=== PATIENT | female | born 1955 | race Caucasian/White ===

== ENCOUNTER 2017-03-28 07:41 | Outpatient (CLI) | payer OTHER ==
--- NOTE | 2017-03-28 09:22 | MRI Preliminary Report ---
Exam: MRI Wrist LT W/O IMPRESSION: 1. Small volar radiocarpal ganglion cyst 0.8 x 0.25 x 1.3 cm. 2. Tiny ganglion cyst at the distal radial aspect of the carpal tunnel decreased in size from prior M RI. [facility] MUSCULOSKELETAL RADIOLOGY SECTION SITE ID: [id number]
--- NOTE | 2017-03-28 11:42 | MRI Report ---
EXAM: LEFT WRIST MRI WITHOUT CONTRAST EXAM DATE: 03/28/2017 08:27 AM. CLINICAL HISTORY: Left wrist pain. Dull pain in the morning increasing into the evening. Prior MR art hrogram 09/24/2015. COMPARISON: Prior MR arthrogram 09/24/2015. TECHNIQUE: Multiplanar, multisequence T1-weighted and fluid-sensitive sequences of the wrist without contrast. Other: None. FINDINGS: Bones and articular surfaces: No significant joint effusion. Slight negative ulnar variance. No osteo chondral lesions. No significant articular cartilage abnormalities are seen. Marrow signal appears wi thin normal limits. Small volar radiocarpal ganglion cyst measures approximately 0.8 x 0.25 cm transv erse and 1.3 cm proximal to distal. No erosive change. There is a smaller ganglion cyst approximately 0.5 x 0.15 x 0.35 cm deep to the distal radial margin of the carpal tunnel, decreased from prior. Musculotendinous structures: Visualized flexor and extensor tendons appear intact without evidence of significant tendinosis or tenosynovitis. No muscle edema, atrophy or fatty replacement within the fi eld-of-view. Ligaments: There is no scapholunate or lunatotriquetral diastases. [place] fibrocartilage appears gr ossly intact. IMPRESSION: 1. Small volar radiocarpal ganglion cyst 0.8 x 0.25 x 1.3 cm. 2. Tiny ganglion cyst at the distal radial aspect of the carpal tunnel decreased in size from prior M [place] [facility] MUSCULOSKELETAL RADIOLOGY SECTION Referring Provider Line: [phone] SITE ID: [id number]
== END 2017-03-28 07:42 | disposition home or self-care (01) ==
LOC: DI 07:41
PROVIDERS: ATTEND Family Medicine
DX: M67.432 Ganglion, left wrist (principal)

== ENCOUNTER 2019-06-11 08:00 | Outpatient (CLI) | payer OTHER | END 2019-06-11 23:59 | disposition home or self-care (01) | LOC: LAB.R 08:00 | PROVIDERS: ATTEND Nurse Practitioner Gerontology | DX: Z12.11 Encounter for screening for malignant neoplasm of colon (principal) | CPT/HCPCS: 82274 ==

== ENCOUNTER 2019-06-12 07:18 | Outpatient (CLI) | payer OTHER ==
[2019-06-12 12:34] LABS: BASOPHILS # (AUTO) 0.1 10^3/uL (0.0-0.1); BASOPHILS % (AUTO) 0.9 %; EOSINOPHILS # (AUTO) 0.2 10^3/uL (0.0-0.7); EOSINOPHILS % (AUTO) 3.3 %; HGB - HEMOGLOBIN 13.6 g/dL (12.0-16.0); LYMPHOCYTES # (AUTO) 1.7 10^3/uL (1.5-3.5); LYMPHOCYTES % (AUTO) 31.3 %; MEAN CORPUSCULAR HEMOGLOBIN 30.7 pg (27.0-31.0); MEAN CORPUSCULAR HGB CONC 32.5 g/dL (32.0-36.0); MEAN CORPUSCULAR VOLUME 94.6 fL (81.0-99.0); MEAN PLATELET VOLUME 11.1 fL (7.9-10.8); MONOCYTES # (AUTO) 0.5 10^3/uL (0.0-1.0); MONOCYTES % (AUTO) 8.7 %; NEUTROPHILS % (AUTO) 55.6 %; PLT - PLATELET COUNT 174 10^3/uL (130-450); RED BLOOD COUNT 4.43 10^6/uL (4.20-5.40); RED CELL DISTRIBUTION WIDTH 13.2 % (12.0-15.0); WHITE BLOOD COUNT 5.4 x10^3/uL (4.8-10.8)
[2019-06-12 12:52] LABS: ALBUMIN 4.2 g/dL (3.2-5.5); ALBUMIN/GLOBULIN RATIO 1.6 (1.0-2.2); ALKALINE PHOSPHATASE 106 IU/L (42-121); ALT ALANINE AMINOTRANSFERASE 14 IU/L (10-60); AST ASPARTATE AMINOTRANSFERASE 21 IU/L (10-42); BILIRUBIN,TOTAL 0.9 mg/dL (0.2-1.0); BUN - BLOOD UREA NITROGEN 16 mg/dL (6-20); CALCIUM 9.2 mg/dL (8.5-10.3); CARBON DIOXIDE - CO2 30 mmol/L (21-32); CHLORIDE 104 mmol/L (101-111); CHOL/HDL RATIO 2.8 (<4.4); CHOLESTEROL 210 mg/dL; CREATININE 0.7 mg/dL (0.4-1.0); GFR - MDRD 85 (>89); GLUCOSE 101 mg/dL (70-100); HDL CHOLESTEROL 76 mg/dL; LDL CHOLESTEROL,CALCULATED 121 mg/dL; LDL/HDL RATIO 1.6 (<4.4); SODIUM 140 mmol/L (135-145); TOTAL PROTEIN 6.9 g/dL (6.7-8.2); VLDL CHOLESTEROL 13 mg/dL
== END 2019-06-12 23:59 | disposition home or self-care (01) ==
LOC: LAB.N 07:18
PROVIDERS: ATTEND Nurse Practitioner Gerontology
DX: Z13.9 Encounter for screening, unspecified (principal); Z12.11 Encounter for screening for malignant neoplasm of colon
CPT/HCPCS: 36415; 80050; 80061; 83721

== ENCOUNTER 2019-10-11 15:36 | Outpatient (CLI) | payer OTHER ==
--- NOTE | 2019-10-11 16:10 | XRAY Report ---
Reason: PAIN ACROSS BALL OF RT FOOT Procedure Date: 10/11/2019 Accession Number: [id number] / [id number] Procedure: XR - Foot 3 View RT CPT Code: Final Report FULL RESULT: EXAM: RIGHT FOOT RADIOGRAPHY EXAM DATE: 10/11/2019 03:51 PM. CLINICAL HISTORY: PAIN ACROSS BALL OF RT FOOT. COMPARISON: None. TECHNIQUE: 3 views. FINDINGS: Bones: Normal. No fractures or bone lesions. Joints: Mild joint space narrowing first metatarsophalangeal joint. First metatarsal tarsal osteophytes, joint space narrowing. Soft Tissues: Normal. No soft tissue swelling. IMPRESSION: Mild DJD [facility]
== END 2019-10-11 15:37 | disposition home or self-care (01) ==
LOC: DI 15:36
PROVIDERS: ATTEND Podiatrist
DX: M19.071 Primary osteoarthritis, right ankle and foot (principal)

== ENCOUNTER 2020-03-27 15:54 | Outpatient (CLI) | payer OTHER ==
--- NOTE | 2020-03-27 15:59 | XRAY Report ---
Reason: LUMBAR RADICULOPATHY Procedure Date: 03/27/2020 Accession Number: [id number] / [id number] Procedure: WCP - Lumbar Spine 2 View CPT Code: Final Report FULL RESULT: PROCEDURE: Lumbar Spine 2 View INDICATIONS: LUMBAR RADICULOPATHY TECHNIQUE: 2 views of the lumbar spine were acquired. COMPARISON: None. FINDINGS: Bones: 5 [id number] vertebrae are present. There is mild diffuse rightward curvature of the mid/upper lumbar spine. There is mild grade 1 anterolisthesis of L4 and L5. Mild multilevel disc space narrowing and endplate osteophyte formation, as well as facet hypertrophy, worst in the mid/lower lumbar spine. No vertebral body compression fractures. No suspicious bony lesions. Soft tissues: Overlying bowel gas pattern is normal. No suspicious soft tissue calcifications. IMPRESSION: 1. Multilevel degenerative disc and facet disease. 2. No acute fracture. No osseous lesion. If symptoms and/or clinical suspicion for pathology continue, further assessment with repeat plain films, or advanced imaging (e.g., CT, MRI, or bone scan) is recommended for further assessment. Reviewed by: Lara Callejas MD on 03/27/2020 3:58 PM PDT Approved by: Lara Callejas MD on 03/27/2020 3:58 PM PDT Station ID: [id number]
== END 2020-03-27 23:59 | disposition home or self-care (01) ==
LOC: DI.WCP 15:54
PROVIDERS: ATTEND Family Medicine
DX: M51.16 Intervertebral disc disorders with radiculopathy, lumbar region (principal)
CPT/HCPCS: 72100

== ENCOUNTER 2020-05-06 13:25 | Outpatient (CLI) | payer OTHER ==
[2020-05-06 18:24] LABS: BASOPHILS # (AUTO) 0.1 10^3/uL (0.0-0.1); BASOPHILS % (AUTO) 0.9 %; EOSINOPHILS # (AUTO) 0.1 10^3/uL (0.0-0.7); EOSINOPHILS % (AUTO) 2.3 %; HGB - HEMOGLOBIN 13.5 g/dL (12.0-16.0); LYMPHOCYTES # (AUTO) 1.6 10^3/uL (1.5-3.5); LYMPHOCYTES % (AUTO) 29.6 %; MEAN CORPUSCULAR HEMOGLOBIN 31.3 pg (27.0-31.0); MEAN CORPUSCULAR HGB CONC 32.5 g/dL (32.0-36.0); MEAN CORPUSCULAR VOLUME 96.1 fL (81.0-99.0); MEAN PLATELET VOLUME 11.3 fL (7.9-10.8); MONOCYTES # (AUTO) 0.6 10^3/uL (0.0-1.0); MONOCYTES % (AUTO) 10.8 %; NEUTROPHILS % (AUTO) 56.2 %; PLT - PLATELET COUNT 171 10^3/uL (130-450); RED BLOOD COUNT 4.32 10^6/uL (4.20-5.40); RED CELL DISTRIBUTION WIDTH 13.4 % (12.0-15.0); WHITE BLOOD COUNT 5.3 x10^3/uL (4.8-10.8)
[2020-05-06 18:52] LABS: ALBUMIN 4.5 g/dL (3.2-5.5); ALBUMIN/GLOBULIN RATIO 1.8 (1.0-2.2); BILIRUBIN,TOTAL 0.6 mg/dL (0.2-1.0); CALCIUM 9.4 mg/dL (8.5-10.3); CREATININE 0.7 mg/dL (0.4-1.0)
== END 2020-05-06 23:59 | disposition home or self-care (01) ==
LOC: LAB.WCP 13:25
PROVIDERS: ATTEND Physician Assistant
DX: R53.83 Other fatigue (principal)
CPT/HCPCS: 36415; 80053; 84443; 85025

== ENCOUNTER 2020-06-02 07:06 | Outpatient (CLI) | payer OTHER ==
--- NOTE | 2020-06-02 08:48 | MRI Report ---
PROCEDURE: Lumbar Spine W/O INDICATIONS: LUMBAR RADICULOPATHY TECHNIQUE: Noncontrast sagittal T1 spin echo and T2 fast echo, sagittal STIR, axial T1 and T2 fast spin echo thr ough the lumbar spine. In cases with scoliosis, additional coronal T2 fast spin echo may be performe d. COMPARISON: X-ray examination dated 03.27.20 FINDINGS: Image quality: Excellent. Alignment and Curvature: 5 lumbar type vertebral bodies are present by plain film. Mild diffuse right atkins curvature of the lumbar spine. Bone Marrow: Marrow is of normal overall signal. No acute vertebral body compression fractures. Mi nimal reactive signal within the endplates adjacent to the T11-T12, T12-L1, L2-L3, L3-L4, and L4-L5 i ntervertebral discs. Spinal Cord: Conus medullaris terminates at the L1-L2 disc space level. Visualized cord demonstrate s normal signal and size. Paraspinous Soft Tissues: No paravertebral masses. Incompletely visualized cystic foci within the r ight and left hepatic lobes are present. T12-L1: Mild disc desiccation. No significant canal, nor foraminal stenosis. L1-L2: Mild disc desiccation. Mild facet and ligamentum flavum hypertrophy. No significant canal, nor foraminal stenosis. L2-L3: Mild disc height loss and desiccation. Mild diffuse disc bulge with small superimposed broa d-based right posterolateral protrusion. Mild facet and ligament flavum hypertrophy. Mild canal steno sis. Mild right foraminal stenosis. No left foraminal stenosis. L3-L4: Mild disc height loss. Moderate disc desiccation. Mild diffuse disc bulge with small superim posed broad-based left far lateral protrusion. Mild facet and ligament flavum hypertrophy. Mild epidu ral lipomatosis. Mild canal stenosis. Mild bilateral foraminal stenosis. L4-L5: Disc height loss and desiccation. Mild diffuse disc bulge. Mild facet and ligament flavum hy pertrophy. Periarticular cyst arising from the right facet joint protrudes into the right lateral rec ess measuring 7 mm transverse by 4 mm anteroposterior. There is mild canal stenosis. Mild bilateral f oraminal stenosis is present. There is compression of the right L5 nerve root within the lateral rece ss. L5-S1: Mild disc desiccation and diffuse disc bulge. Mild bilateral facet hypertrophy. Mild canal s tenosis. No foraminal stenosis. IMPRESSION: 1. Multilevel degenerative disc and facet disease, in addition to epidural lipomatosis and ligamentum flavum hypertrophy. 2. Superimposed facet cyst at L4-L5 as described above. 3. Mild multilevel canal and foraminal stenoses. 4. Right lateral recess stenosis at L4-L5, causing right L5 nerve root compression. Recommend correla tion with clinical symptoms to ascertain relevance of this finding. 5. Incompletely visualized cystic foci within the liver, which could initially be further assessed wi th ultrasound. Reviewed by: Lara Callejas MD on 06/02/2020 8:46 AM PDT Approved by: Lara Callejas MD on 06/02/2020 8:46 AM PDT Station ID: [id number]
== END 2020-06-02 07:07 | disposition home or self-care (01) ==
LOC: DI 07:06
PROVIDERS: ATTEND Nurse Practitioner Family
DX: M51.26 Other intervertebral disc displacement, lumbar region (principal); M51.35 Other intervertebral disc degeneration, thoracolumbar region; M51.36 Other intervertebral disc degeneration, lumbar region; M47.816 Spondylosis without myelopathy or radiculopathy, lumbar region; M47.817 Spondylosis without myelopathy or radiculopathy, lumbosacral region; M48.061 Spinal stenosis, lumbar region without neurogenic claudication; E88.2 Lipomatosis, not elsewhere classified; M71.38 Other bursal cyst, other site
CPT/HCPCS: 72148

== ENCOUNTER 2020-07-02 07:30 | Outpatient (CLI) | payer MEDICARE, OTHER ==
--- NOTE | 2020-07-02 09:09 | Ultrasound Report ---
PROCEDURE: Abdomen Limited INDICATIONS: LIVER CYST TECHNIQUE: Real-time focused scanning was performed of the abdomen, with image documentation. COMPARISON: None. FINDINGS: The liver measures 14.9 cm craniocaudad, and there are scattered hepatic cysts within the liver parenchyma, the largest located within the right hepatic lobe measuring 9.2 x 8.2 x 5.6 cm and that within the left hepatic lobe measuring 5.1 x 4.3 x 6.3 cm. These are simple in appearance. The b ile ducts are not distended. The gallbladder appears normal as does the pancreas. The right kidney ap pears normal free of hydronephrosis or nephrolithiasis. IMPRESSION: Scattered simple hepatic cysts are present, the largest on the right measuring up to 9.2 cm and the l argest on the left measuring up to 6.3 cm. Reviewed by: Roly Odonnell MD on 07/02/2020 9:08 AM PDT Approved by: Roly Odonnell MD on 07/02/2020 9:08 AM PDT Station ID: [id number]
== END 2020-07-02 07:31 | disposition home or self-care (01) ==
LOC: DI 07:30
PROVIDERS: ATTEND Family Medicine
DX: K76.89 Other specified diseases of liver (principal)
CPT/HCPCS: 76705

== ENCOUNTER 2021-03-11 09:05 | Outpatient (CLI) | payer MEDICARE, OTHER ==
--- NOTE | 2021-03-11 12:43 | XRAY Report ---
PROCEDURE: Cervical Spine 2 View INDICATIONS: ACUTE NECK PX TECHNIQUE: 3 view(s) of the cervical spine were acquired. COMPARISON: None. FINDINGS: Bones: No fractures or dislocations to the T1 level. The lateral masses of C1 appear intact on the odontoid view. No suspicious bony lesions. Disc space narrowing at C5-6 and C6-7 with anterior oste ophytes at these levels. Soft tissues: No prevertebral soft tissue swelling. IMPRESSION: 1. Degenerative disc disease at C5-6 and C6-7. 2. No acute abnormality. Reviewed by: Job Tai on 03/11/2021 12:42 PM PDT Approved by: Job Tai on 03/11/2021 12:42 PM PDT Station ID: [id number]
== END 2021-03-11 09:06 | disposition home or self-care (01) ==
LOC: DI.N 09:05
PROVIDERS: ATTEND Family Medicine
DX: M50.322 Other cervical disc degeneration at C5-C6 level (principal); R63.4 Abnormal weight loss; R41.3 Other amnesia
CPT/HCPCS: 36415; 80053; 82607; 84443; 85025; 86592

== ENCOUNTER 2021-03-11 09:09 | Outpatient (CLI) | payer MEDICARE, OTHER ==
[2021-03-11 11:54] LABS: BASOPHILS # (AUTO) 0.1 10^3/uL (0.0-0.1); BASOPHILS % (AUTO) 0.8 %; EOSINOPHILS # (AUTO) 0.2 10^3/uL (0.0-0.7); EOSINOPHILS % (AUTO) 2.4 %; HCT - HEMATOCRIT 44.5 % (37.0-47.0); LYMPHOCYTES # (AUTO) 1.7 10^3/uL (1.5-3.5); LYMPHOCYTES % (AUTO) 27.4 %; MEAN CORPUSCULAR HEMOGLOBIN 30.3 pg (27.0-31.0); MEAN CORPUSCULAR HGB CONC 31.5 g/dL (32.0-36.0); MEAN CORPUSCULAR VOLUME 96.3 fL (81.0-99.0); MEAN PLATELET VOLUME 11.3 fL (7.9-10.8); MONOCYTES # (AUTO) 0.6 10^3/uL (0.0-1.0); MONOCYTES % (AUTO) 9.3 %; NEUTROPHILS # (AUTO) 3.7 10^3/uL (1.5-6.6); NEUTROPHILS % (AUTO) 59.9 %; PLT - PLATELET COUNT 192 10^3/uL (130-450); RED BLOOD COUNT 4.62 10^6/uL (4.20-5.40); RED CELL DISTRIBUTION WIDTH 12.8 % (12.0-15.0); WHITE BLOOD COUNT 6.2 x10^3/uL (4.8-10.8)
[2021-03-11 12:13] LABS: THYROID STIMULATING HORMONE 0.9 uIU/mL (0.34-5.60)
[2021-03-11 12:35] LABS: ALBUMIN 4.9 g/dL (3.2-5.5); BILIRUBIN,TOTAL 0.9 mg/dL (0.2-1.0); CALCIUM 9.5 mg/dL (8.5-10.3); CREATININE 0.8 mg/dL (0.4-1.0); POTASSIUM 3.8 mmol/L (3.5-5.0); TOTAL PROTEIN 7.4 g/dL (6.7-8.2)
== END 2021-03-11 09:10 | disposition home or self-care (01) ==
LOC: LAB.N 09:09
PROVIDERS: ATTEND Family Medicine
DX: R63.4 Abnormal weight loss (principal); R41.3 Other amnesia
CPT/HCPCS: 36415; 80053; 82607; 84443; 85025; 86592

== ENCOUNTER 2021-05-11 11:57 | Outpatient (CLI) | payer MEDICARE, OTHER ==
[2021-05-11 18:40] LABS: ALBUMIN 4.7 g/dL (3.2-5.5); BILIRUBIN,TOTAL 0.9 mg/dL (0.2-1.0); CALCIUM 9.8 mg/dL (8.5-10.3); CREATININE 0.7 mg/dL (0.4-1.0); POTASSIUM 3.9 mmol/L (3.5-5.0); TOTAL PROTEIN 7.1 g/dL (6.7-8.2)
== END 2021-05-11 11:58 | disposition home or self-care (01) ==
LOC: LAB.N 11:57
PROVIDERS: ATTEND Family Medicine
DX: R63.4 Abnormal weight loss (principal); E53.8 Deficiency of other specified B group vitamins
CPT/HCPCS: 36415; 80053; 82607; 83615

== ENCOUNTER 2021-05-12 10:20 | Outpatient (CLI) | payer MEDICARE, OTHER ==
[2021-05-12 17:31] LABS: FECAL OCCULT BLOOD (FIT) NEGATIVE (NEGATIVE)
== END 2021-05-12 23:59 | disposition home or self-care (01) ==
LOC: LAB.WCP 10:20
PROVIDERS: ATTEND Family Medicine
DX: Z12.11 Encounter for screening for malignant neoplasm of colon (principal)
CPT/HCPCS: 82274

== ENCOUNTER 2021-06-22 11:41 | Outpatient (CLI) | payer MEDICARE, OTHER ==
--- NOTE | 2021-06-22 18:54 | XRAY Report ---
PROCEDURE: Wrist 3 View LT INDICATIONS: L WRIST PX TECHNIQUE: 3 views of the wrist were acquired. COMPARISON: None FINDINGS: Bones: No fractures or dislocations. No suspicious bony lesions. Soft tissues: No suspicious soft tissue calcifications. IMPRESSION: Unremarkable left wrist radiographs Reviewed by: Randy Lao MD on 06/22/2021 5:53 PM [facility] Approved by: Randy Lao MD on 06/22/2021 5:53 PM [facility] Station ID: [id number]
== END 2021-06-22 11:42 | disposition home or self-care (01) ==
LOC: DI.N 11:41
PROVIDERS: ATTEND Family Medicine
DX: M25.532 Pain in left wrist (principal)

== ENCOUNTER 2021-07-02 13:23 | Outpatient (CLI) | payer MEDICARE, OTHER ==
[2021-07-02 18:19] LABS: CREATININE 0.8 mg/dL (0.4-1.0)
== END 2021-07-02 23:59 | disposition home or self-care (01) ==
LOC: LAB.WCP 13:23
PROVIDERS: ATTEND Family Medicine
DX: R63.4 Abnormal weight loss (principal)
CPT/HCPCS: 36415; 82565

== ENCOUNTER 2021-07-10 07:36 | Outpatient (CLI) | payer MEDICARE, OTHER ==
[2021-07-10] MEDS ORDERED: IOVERSOL 320 50 ML VIAL ONE (07:49)
[2021-07-10] MEDS ORDERED: IOVERSOL 320 100 ML VIAL IVP ONE ×2 (07:49→09:18)
[2021-07-10] MEDS ORDERED: IOVERSOL 320 50 ML VIAL PO ONE (09:18)
--- NOTE | 2021-07-10 10:19 | CT Report ---
PROCEDURE: SOFT TISSUE NECK W INDICATIONS: HIST OF BREAST CA, LOSS OF WEIGHT, NECK PAIN CONTRAST: IV CONTRAST: Optiray 320 ml: 100 PO CONTRAST: Isovue 300 ml50 TECHNIQUE: After the administration of intravenous contrast, 3.0 mm axial sections acquired from the sella to th e aortic arch. Additional oblique axial 3.0 mm sections acquired through the pharynx. 3 mm thick co ten reformats were generated. For radiation dose reduction, the following was used: automated exp osure control, adjustment of mA and/or kV according to patient size. COMPARISON: Correlation is made with the accompanying CT examinations. FINDINGS: Image quality: Excellent. Lymph nodes: No enlarged lymph nodes seen throughout the neck. Right axillary clips are seen. Vessels: Visualized vasculature appears patent. Neck spaces: The oropharynx, nasopharynx, and pharynx demonstrate no mucosal lesions. The vocal cor ds, false vocal cords, pyriform sinuses, epiglottis, vallecula, and tongue base all appear normal. E xtramucosal spaces appear unremarkable. Glands: The parotid and submandibular glands appear normal. Along the inferior thyroid isthmus, the re is a hypoechoic focus seen that measures 11 mm. Miscellaneous: Visualized brain and orbits appear normal. Lung apices appear clear. Superficial so ft tissues appear normal. Bones: No suspicious bony lesions. Visualized sinuses and mastoids appear unremarkable. Age-approp riate degenerative changes are seen. IMPRESSION: No enlarged lymph nodes are seen within the neck. No suspicious neck masses are seen. 11 mm hypoechoic focus seen involving the inferior thyroid isthmus. Please consider a follow-up thyro id ultrasound for further evaluation. Reviewed by: Ralph Cisneros MD on 07/10/2021 9:17 AM [facility] Approved by: Ralph Cisneros MD on 07/10/2021 9:17 AM [facility] Station ID: [id number]
--- NOTE | 2021-07-10 10:23 | CT Report ---
PROCEDURE: CHEST W INDICATIONS: HIST OF BREAST CA, LOSS OF WEIGHT, NECK PAIN CONTRAST: IV CONTRAST: Optiray 320 ml: 100 PO CONTRAST: Isovue 300 ml50 TECHNIQUE: After the administration of intravenous contrast, 1 mm axial images were acquired from the pulmonary apices through the posterior costophrenic angles. Axial 5 mm soft tissue kernel reconstructions were performed as well as 8 mm axial MIP and coronal and sagittal 5 mm reformations. For radiation dose reduction, the following was used: automated exposure control, adjustment of mA and/or kV according to patient size. COMPARISON: None. FINDINGS: Image quality: Excellent. Lungs and pleura: Mild fibrotic change can be seen involving the anterolateral right lung superiorly . No acute air space opacities. No pleural effusions or pneumothorax. Central and peripheral airw ays are patent and normal in caliber. Mediastinum: Heart size is normal. No pericardial effusion. No mediastinal or hilar adenopathy by size criteria. Thoracic aorta and central pulmonary arteries are normal in size. Esophagus is mandy l in caliber. No hiatal hernia. Bones and chest wall: No suspicious bony lesions. There is accentuated thoracic kyphosis. Age-appr opriate degenerative changes are seen. No vertebral body compression fractures. Right axillary clip s are seen. No axillary or supraclavicular adenopathy by size criteria. Along the inferior thyroid i sthmus, there is an 11 mm hypoechoic focus seen. Abdomen: Numerous simple appearing liver cysts are seen. The visualized portions of the upper abdomin al structures are otherwise within normal limits. IMPRESSION: No enlarged lymph nodes are seen. No masses can be seen. Right axillary clips are seen, which is attributed to prior right breast cancer. There is also a smal l amount of subpleural fibrotic change involving the right anterior lung, which is attributed to prio r radiation treatment. 11 mm hypoechoic focus seen along the inferior thyroid isthmus. Please consider a dedicated thyroid u ltrasound for further evaluation. Incidental note is made of: Accentuated thoracic kyphosis Simple appearing liver cysts Reviewed by: Ralph Cisneros MD on 07/10/2021 9:21 AM [facility] Approved by: Ralph Cisneros MD on 07/10/2021 9:21 AM [facility] Station ID: [id number]
--- NOTE | 2021-07-10 10:27 | CT Report ---
PROCEDURE: Abdomen/Pelvis W INDICATIONS: HIST OF BREAST CA, LOSS OF WEIGHT, NECK PAIN CONTRAST: IV CONTRAST: Optiray 320 ml: 100 PO CONTRAST: Isovue 300 ml50 TECHNIQUE: After the administration of oral and IV contrast, 5 mm thick sections acquired from the diaphragms to the symphysis. 5 mm thick coronal and sagittal reformats were acquired. For radiation dose reducti on, the following was used: automated exposure control, adjustment of mA and/or kV according to christina ent size. COMPARISON: Correlation is made with the accompanying CT examinations. FINDINGS: Image quality: Excellent. ABDOMEN: Lung bases: Lung bases are clear. Heart size is normal. Solid organs: The liver demonstrates normal size. Numerous simple appearing liver cysts are seen. The spleen demonstrates normal size and demonstrates no focal lesions. Gallbladder demonstrates no si gnificant CT abnormality. Biliary system is non dilated. Pancreas enhances normally. No adrenal no dules. Kidneys demonstrate normal size and enhancement, without hydronephrosis. Peritoneum and bowel: Bowel loops demonstrate normal wall thickness and caliber. No free fluid or a ir. There is a moderate amount of stool seen within the colon. Nodes and vessels: No retroperitoneal or mesenteric adenopathy by size criteria. Aorta and inferior vena cava are normal in size. Miscellaneous: No ventral hernias. PELVIS: Genitourinary: Bladder wall thickness is normal. The uterus demonstrates an unremarkable appearance for age. No adnexal masses are seen. Miscellaneous: No inguinal hernias or adenopathy. Bones: No suspicious bony lesions. No vertebral body compression fractures. Age-appropriate degene rative changes are seen. Mild dextroconvex scoliotic curvature is seen. IMPRESSION: No masses can be seen. No enlarged lymph nodes can be seen. No findings of metastatic disease are detected. There is a moderate amount of stool seen within the colon. Please correlate with clinical constipatio n. Incidental note is made of: Numerous prominent, simple appearing liver cysts Dextroconvex scoliotic curvature Reviewed by: Ralph Cisneros MD on 07/10/2021 9:25 AM [facility] Approved by: Ralph Cisneros MD on 07/10/2021 9:25 AM [facility] Station ID: [id number]
== END 2021-07-10 07:37 | disposition home or self-care (01) ==
LOC: DI 07:36
PROVIDERS: ATTEND Family Medicine
DX: Z85.3 Personal history of malignant neoplasm of breast (principal); R63.4 Abnormal weight loss; M54.2 Cervicalgia; R93.89 Abnormal findings on diagnostic imaging of other specified body structures; R91.8 Other nonspecific abnormal finding of lung field
CPT/HCPCS: 70491; 71260; 74177; Q9967

== ENCOUNTER 2021-07-31 07:40 | Outpatient (CLI) | payer MEDICARE, OTHER ==
--- NOTE | 2021-07-31 11:49 | Ultrasound Report ---
PROCEDURE: Head or Neck Soft Tissue INDICATIONS: THYROID NODULE TECHNIQUE: Real-time scanning was performed of the thyroid gland, with image documentation. COMPARISON: CT dated 07/10/2020 FINDINGS: Right: Thyroid lobe measures 5.2 x 1.9 x 1.6 cm, and is homogeneous in echotexture. Left: Thyroid lobe measures 5.0 x 2.0 x 1.8 cm, and is homogenous in echotexture. Isthmus: 8 mm thick. Nodule number: One Location: Isthmus Size: 1.5 x 0.6 x 1.1 cm. Composition: Spongiform Echogenicity: Hypoechoic Shape: wider than tall. Margins: Smooth Echogenic foci: None Total points: 2 ACR TI-RADS category: 2 Nodule number: Two Location: Left superior thyroid Size: 0.8 x 0.4 x 0.6 cm. Composition: Solid Echogenicity: Hypoechoic Shape: wider than tall. Margins: Smooth Echogenic foci: Punctate calcifications. Total points: 7 ACR TI-RADS category: 5 Nodule number: Three Location: Left mid thyroid Size: 1.1 x 0.7 x 0.9 cm. Composition: Predominately solid Echogenicity: Hypoechoic Shape: wider than tall. Margins: Smooth Echogenic foci: None Total points: 4 ACR TI-RADS category: 4 Additional colloid cysts are noted throughout the thyroid gland. IMPRESSION: Multiple thyroid nodules as described above. This includes a subcentimeterr TI-RADS category 5 lesion within the left thyroid lobe as well as a 1.1 cm TI-RADS category 4 lesion in the left thyroid lobe. Recommend ultrasound follow-up in 1 year as below. ACR TI-RADS definitions and recommendations: TI-RADS 1 (benign): 0 points. FNA not needed. TI-RADS 2 (not suspicious): 2 points. FNA not needed. TI-RADS 3 (mildly suspicious): 3 points. "FNA if 2.5 cm or larger, follow up if 1.5 cm or larger (at 1, 3, and 5 years). TI-RADS 4 (moderately suspicious): 4-6 points. "FNA if 1.5 cm or larger, follow up if 1 cm or larger (at 1, 2, 3, and 5 years). TI-RADS 5 (highly suspicious): 7 points or more. "FNA if 1 cm or larger, follow up if 0.5 cm or larger (every year for 5 years). Reviewed by: Jose Alvarez DO on 07/31/2021 10:48 AM [facility] Approved by: Jose Alvarez DO on 07/31/2021 10:48 AM [facility] Station ID: [id number]
== END 2021-07-31 07:41 | disposition home or self-care (01) ==
LOC: DI 07:40
PROVIDERS: ATTEND Family Medicine
DX: E04.2 Nontoxic multinodular goiter (principal)

== ENCOUNTER 2022-07-05 15:46 | Outpatient (CLI) | payer MEDICARE, OTHER ==
--- NOTE | 2022-07-05 18:00 | XRAY Report ---
PROCEDURE: Cervical Spine 2 View INDICATIONS: DJD OF NECK TECHNIQUE: 3 view(s) of the cervical spine were acquired. COMPARISON: None. FINDINGS: Bones: No fractures or dislocations to the C7-T1 level. The lateral masses of C1 appear intact on t he odontoid view. No suspicious bony lesions. Degenerative change including intervertebral disc spac e narrowing and osteophytosis is present within the lower cervical spine. No compression deformities. Soft tissues: No prevertebral soft tissue swelling. IMPRESSION: Degenerative change. Reviewed by: Lynn Vernon MD on 07/05/2022 5:59 PM PDT Approved by: Lynn Vernon MD on 07/05/2022 5:59 PM PDT Station ID: [id number]
== END 2022-07-05 15:47 | disposition home or self-care (01) ==
LOC: DI.N 15:46
PROVIDERS: ATTEND Family Medicine
DX: M47.812 Spondylosis without myelopathy or radiculopathy, cervical region (principal)

== ENCOUNTER 2022-07-12 07:53 | Outpatient (CLI) | payer MEDICARE, OTHER ==
--- NOTE | 2022-07-12 15:00 | Ultrasound Report ---
PROCEDURE: Head or Neck Soft Tissue INDICATIONS: THYROID NODULE TECHNIQUE: Real time scanning was performed of the neck region of interest, with image documentation . COMPARISON: Ultrasound thyroid, 07/31/2010. FINDINGS: Right: Thyroid lobe measures 4.8 x 1.6 x 1.6 cm, and is homogeneous in echotexture. Left: Thyroid lobe measures 5.0 x 1.6 x 2.0 cm, and is homogenous in echotexture. Isthmus: 8 mm thick. Nodule number: Two Location: Left superior thyroid Size: 0.8 x 0.4 x 0.6 cm. Composition: Solid Echog enicity: Hypoechoic Shape: wider than tall. Margins: Smooth Echogenic foci: Punctate calcifications. Total points: 7 ACR TI-RADS category: 5 Nodule number: 1 Location: Right superior lateral Size: 0.6 x 3.3 x 0.5 cm.; previously 0.5 x 0.4 x 0.3 cm Composition: Spongiform Echogenicity: Hyperechoic Shape: wider than tall Margins: Smooth Echogenic foci: None Total points: 2 ACR TI-RADS category: 2 Nodule number: 2 Location: Right mid to inferior Size: 0.5 x 0.4 x 0.8 cm; previously not imaged Composition: Solid Echogenicity: Isoechoic Shape: wider than tall Margins: Smooth Echogenic foci: None Total points: 3 ACR TI-RADS category: 3 Nodule number: 3 Location: Left superior lateral Size: 0.8 x 0.4 x 0.7 cm; previously 0.8 x 0.4 x 0.6 cm Composition: Spongiform Echogenicity: Hypoechoic Shape: wider than tall Margins: Smooth Echogenic foci: Macrocalcification Total points: 3 ACR TI-RADS category: 3 Nodule number: 4 Location: Left [id number] Size: 1.2 x 0.6 x 0.9 cm; previously 1.1 x 0.7 x 0.9 cm Composition: Solid Echogenicity: Hypoechoic Shape: wider than tall Margins: Smooth Echogenic foci: None Total points: 4 ACR TI-RADS category: 4 Location: Left [id number] Size: 0.7 x 0.4 x 0.4 cm; previously 0.5 x 0.3 x 0.4 cm Composition: Cystic Echogenicity: Anechoic Shape: wider than tall Margins: Smooth Echogenic foci: None Total points: 1 ACR TI-RADS category: 1 Nodule number: 6 Location: Isthmus Size: 1.3 x 0.7 x 1.1 cm; previously 1.5 x 0.6 x 1.1 cm. Composition: Spongiform Echogenicity: Hyperechoic Shape: wider than tall. Margins: Smooth Echogenic foci: None Total points: 2 ACR TI-RADS category: 2 IMPRESSION: Multiple thyroid nodules as described above. The nodules are overall stable in size. Rec ommend continue sonographic surveillance. ACR TI-RADS definitions and recommendations: TI-RADS 1 (benign): 0 points. FNA not needed. TI-RADS 2 (not suspicious): 2 points. FNA not needed. TI-RADS 3 (mildly suspicious): 3 points. FNA if 2.5 cm or larger, follow up if 1.5 cm or larger (at 1 , 3, and 5 years). TI-RADS 4 (moderately suspicious): 4-6 points. FNA if 1.5 cm or larger, follow up if 1 cm or larger ( at 1, 2, 3, and 5 years). TI-RADS 5 (highly suspicious): 7 points or more. FNA if 1 cm or larger, follow up if 0.5 cm or larger (every year for 5 years). Reviewed by: Isael James MD on 07/12/2022 2:59 PM PDT Approved by: Isael James MD on 07/12/2022 2:59 PM PDT Station ID: [id number]
== END 2022-07-12 07:54 | disposition home or self-care (01) ==
LOC: DI 07:53
PROVIDERS: ATTEND Family Medicine
DX: E04.2 Nontoxic multinodular goiter (principal)

== ENCOUNTER 2022-09-12 07:34 | Outpatient (CLI) | payer MEDICARE, OTHER ==
[2022-09-12 12:41] LABS: CHOL/HDL RATIO 2.4 (<4.4); CHOLESTEROL 180 mg/dL; HDL CHOLESTEROL 76 mg/dL; LDL CHOLESTEROL,CALCULATED 92 mg/dL; LDL/HDL RATIO 1.2 (<4.4); TRIGLYCERIDES 59 mg/dL; VLDL CHOLESTEROL 12 mg/dL
== END 2022-09-12 07:35 | disposition home or self-care (01) ==
LOC: LAB.N 07:34
PROVIDERS: ATTEND Physician Assistant
DX: E53.8 Deficiency of other specified B group vitamins (principal); Z13.220 Encounter for screening for lipoid disorders
CPT/HCPCS: 36415; 80061; 82607; 83721

== ENCOUNTER 2023-08-30 07:15 | Outpatient (CLI) | payer MEDICARE, OTHER ==
[2023-08-30 12:51] LABS: ALBUMIN 4.5 g/dL (3.2-5.5); ALKALINE PHOSPHATASE 75 IU/L (42-121); ALT ALANINE AMINOTRANSFERASE 12 IU/L (10-60); AST ASPARTATE AMINOTRANSFERASE 17 IU/L (10-42); BASOPHILS # (AUTO) 0.1 10^3/uL (0.0-0.1); BASOPHILS % (AUTO) 1.5 %; BILIRUBIN,TOTAL 0.9 mg/dL (0.2-1.0); BUN - BLOOD UREA NITROGEN 32 mg/dL (6-20); CALCIUM 10.1 mg/dL (8.5-10.3); CARBON DIOXIDE - CO2 32 mmol/L (21-32); CHLORIDE 105 mmol/L (101-111); CHOL/HDL RATIO 2.4 (<4.4); CHOLESTEROL 217 mg/dL; EOSINOPHILS # (AUTO) 0.2 10^3/uL (0.0-0.7); EOSINOPHILS % (AUTO) 3.4 %; GFR - MDRD 55 (>89); GLUCOSE 98 mg/dL (74-104); HCT - HEMATOCRIT 43.7 % (37.0-47.0); HDL CHOLESTEROL 92 mg/dL; HGB - HEMOGLOBIN 13.9 g/dL (12.0-16.0); LDL CHOLESTEROL,CALCULATED 113 mg/dL; LDL/HDL RATIO 1.2 (<4.4); LYMPHOCYTES # (AUTO) 1.5 10^3/uL (1.5-3.5); MEAN CORPUSCULAR HEMOGLOBIN 30.5 pg (27.0-31.0); MEAN CORPUSCULAR HGB CONC 31.8 g/dL (32.0-36.0); MEAN CORPUSCULAR VOLUME 95.8 fL (81.0-99.0); MEAN PLATELET VOLUME 10.8 fL (7.9-10.8); MONOCYTES # (AUTO) 0.5 10^3/uL (0.0-1.0); MONOCYTES % (AUTO) 10.5 %; NEUTROPHILS # (AUTO) 2.5 10^3/uL (1.5-6.6); NEUTROPHILS % (AUTO) 52.4 %; PLT - PLATELET COUNT 178 10^3/uL (130-450); POTASSIUM 4.1 mmol/L (3.5-4.5); RED BLOOD COUNT 4.56 10^6/uL (4.20-5.40); SODIUM 140 mmol/L (135-145); TOTAL PROTEIN 6.8 g/dL (6.4-8.9); TRIGLYCERIDES 62 mg/dL (48-352); VLDL CHOLESTEROL 12 mg/dL; WHITE BLOOD COUNT 4.8 x10^3/uL (4.8-10.8)
[2023-08-30 13:03] LABS: THYROID STIMULATING HORMONE 1.29 uIU/mL (0.34-5.60)
== END 2023-08-30 07:16 | disposition home or self-care (01) ==
LOC: LAB.N 07:15
PROVIDERS: ATTEND Physician Assistant
DX: E53.8 Deficiency of other specified B group vitamins (principal); Z79.899 Other long term (current) drug therapy; Z13.220 Encounter for screening for lipoid disorders; Z13.29 Encounter for screening for other suspected endocrine disorder
CPT/HCPCS: 36415; 80053; 80061; 82607; 83721; 84443; 85025

== ENCOUNTER 2023-09-23 06:50 | Outpatient (CLI) | payer MEDICARE, OTHER ==
--- NOTE | 2023-09-23 10:14 | Ultrasound Report ---
PROCEDURE: Head or Neck Soft Tissue INDICATIONS: THYROID NODULE TECHNIQUE: Real-time scanning was performed of the thyroid gland, with image documentation. COMPARISON: Ultrasound 07/31/2021, 07/12/2022. FINDINGS: Right: Thyroid lobe measures 4.5 x 1.9 x 1.6 cm, and is heterogeneous in echotexture. Left: Thyroid lobe measures 4.9 x 1.7 x 1.7 cm, and is heterogeneous in echotexture. Isthmus: 0.4 cm thick. Multiple thyroid cysts and spongiform nodules, which are benign and require no further follow-up. The se solid nodules are compared below: Nodule number: One (previously nodule #4 on prior exam). Location: Left superior pole Size: 1.0 x 0.7 x 0.8 cm. Previously 1.2 x 0.6 x 0.9 cm. Composition: Solid (2 points). Small cystic spaces are present. Echogenicity: Hypoechoic (2 points). Shape: wider than tall (0 points). Margins: Smooth (0 points). Echogenic foci: Colloid present within the small cystic spaces. Total points: 4 ACR TI-RADS category: TI-RADS 4: Moderately suspicious. IMPRESSION: Heterogeneous thyroid with multiple spongiform and anechoic cysts, which require no further follow-up . Stable TI-RADS 4 lesion in the superior left lobe. Continued follow-up is recommended, according to g uidelines below. ACR TI-RADS definitions and recommendations: TI-RADS 1 (benign): 0 points. FNA not needed. TI-RADS 2 (not suspicious): 2 points. FNA not needed. TI-RADS 3 (mildly suspicious): 3 points. "FNA if 2.5 cm or larger, follow up if 1.5 cm or larger (at 1, 3, and 5 years). TI-RADS 4 (moderately suspicious): 4-6 points. "FNA if 1.5 cm or larger, follow up if 1 cm or larger (at 1, 2, 3, and 5 years). TI-RADS 5 (highly suspicious): 7 points or more. "FNA if 1 cm or larger, follow up if 0.5 cm or larger (every year for 5 years). Reviewed by: Jonathan Ramírez MD on 09/23/2023 10:13 AM PST Approved by: Jonathan Ramírez MD on 09/23/2023 10:13 AM [facility] Station ID: [id number]
== END 2023-09-23 06:51 | disposition home or self-care (01) ==
LOC: DI 06:50
PROVIDERS: ATTEND Physician Assistant
DX: E04.1 Nontoxic single thyroid nodule (principal); N28.9 Disorder of kidney and ureter, unspecified
CPT/HCPCS: 36415; 80048

== ENCOUNTER 2023-09-23 07:49 | Outpatient (CLI) | payer MEDICARE, OTHER ==
[2023-09-23 09:14] LABS: CALCIUM 9.7 mg/dL (8.5-10.3); CREATININE 0.9 mg/dL (0.6-1.3)
== END 2023-09-23 07:50 | disposition home or self-care (01) ==
LOC: LAB 07:49
PROVIDERS: ATTEND Physician Assistant
DX: N28.9 Disorder of kidney and ureter, unspecified (principal)
CPT/HCPCS: 36415; 80048

== ENCOUNTER 2023-11-23 07:53 | Outpatient (CLI) | payer MEDICARE, OTHER ==
[2023-11-23 12:38] LABS: RHEUMATOID FACTOR NEGATIVE (Negative)
[2023-11-24 03:11] LABS: HBsAG SCREEN Negative (Negative); HCV AB Non Reactive (Non Reactive); HEPATITIS B SURFACE AB QUANT <3.1 mIU/mL (Immunity>9.9)
[2023-11-24 19:07] LABS: CYCLIC CITRULLINATED PEP IGG/A 5 units (0-19)
[2023-11-28 19:07] LABS: ANTINUCLEAR ANTIBODIES IFA Negative (.)
== END 2023-11-23 07:54 | disposition home or self-care (01) ==
LOC: LAB.N 07:53
PROVIDERS: ATTEND Physician Assistant
DX: L53.8 Other specified erythematous conditions (principal)
CPT/HCPCS: 36415; 82728; 86038; 86200; 86317; 86430; 86704; 86803; 87340